=== PATIENT | female | born 1950 | race Caucasian/White ===

== ENCOUNTER 2017-02-04 03:13 | Emergency (ER) | payer BC, MEDICARE, OTHER ==
[~2017-02-04] VITALS: Ht 157.5 cm; Wt 68.0 kg
[2017-02-04 03:19] VITALS: BP_SYST 150
--- NOTE | 2017-02-04 03:19 | NUR ---
Patient to ER bed 6 to gown for evaluation. Side rails up. Report given to MER Vela.
--- NOTE | 2017-02-04 03:25 | NUR ---
Patient AOx4, brought in by ambulance BLS for complaint of generalized weakness, nausea, vomiting x2 days. No other symptoms or complaints at this time.
[2017-02-04] MEDS ORDERED: KETOROLAC TROMETHAMINE 30 MG VIAL IVP ONE (03:45)
[2017-02-04] MEDS ORDERED: NACL 0.9% 1,000 ML IV ONE (03:45)
[2017-02-04] MEDS ORDERED: ONDANSETRON HCL 4 MG/2 ML VIAL IVP ONE ×2 (03:45→06:30)
--- NOTE | 2017-02-04 03:45 | NUR ---
KING VALDEZ Kwaw at bedside for medical evaluation.
--- NOTE | 2017-02-04 03:47 | NUR ---
# 22 gauge angiocath placed to LAC. Use of asceptic technique. Opsite placed over site. Blood return noted. Blood for lab drawn from site. Flushed with 10 cc of normal saline. No evidence of infiltration noted. Patient tolerated well.
[2017-02-04 04:09] LABS: EOSINOPHILS % (AUTO) 1.5 % (0.0-4.0); HEMATOCRIT 45.1 % (36-48); HEMOGLOBIN 15.3 g/dL (12.0-16.0); LYMPHOCYTES # (AUTO) 1.7 K/uL (1.0-5.5); LYMPHOCYTES % (AUTO) 10.1 % (20.5-51.5); MEAN CORPUSCULAR HEMOGLOBIN 31 pg (27-31); MEAN CORPUSCULAR HGB CONC 34 % (32-36); MEAN CORPUSCULAR VOLUME 92 fL (79.0-98.0); MONOCYTES # (AUTO) 0.6 K/uL (0.0-1.0); MONOCYTES % (AUTO) 3.7 % (1.7-9.3); NEUTROPHILS # (AUTO) 13.8 K/uL (1.8-7.7); NEUTROPHILS % (AUTO) 81.7 % (40.0-70.0); PLATELET COUNT (AUTO) 246 K/uL (130-430); RED BLOOD CELL COUNT(AUTO) 4.88 MIL/uL (4.2-6.2); RED CELL DISTRIBUTION WIDTH 13.5 % (9.0-15.0); WHITE BLOOD COUNT (AUTO) 16.9 K/uL (4.8-10.8)
[2017-02-04 04:10] LABS: BASOPHILS # (AUTO) 0.5 K/uL (0.0-0.2); EOSINOPHILS # (AUTO) 0.3 K/uL (0.0-0.4)
[2017-02-04 04:14] LABS: CREATININE 1.12 mg/dL (0.55-1.30); POTASSIUM 3.7 mmol/L (3.5-5.1)
[2017-02-04 04:19] LABS: ALBUMIN 4.3 g/dL (3.4-4.8); TOTAL BILIRUBIN 0.4 mg/dL (0.0-1.0)
--- NOTE | 2017-02-04 04:22 | NUR ---
Patient refused Toradol and Zofran. Dr. Botello made aware.
[2017-02-04 04:34] LABS: BILIRUBIN,URINE NEGATIVE (NEGATIVE); BLOOD, URINE NEGATIVE (NEGATIVE); CLARITY/URINE CLEAR (CLEAR); COLOR,URINE YELLOW (YELLOW); GLUCOSE,URINE NEGATIVE (NEGATIVE); KETONES,URINE NEGATIVE (NEGATIVE); LEUKOCYTE ESTERASE ,URINE 1+ (NEGATIVE); NITRITE, URINE NEGATIVE (NEGATIVE); PROTEIN URINE 1+ (NEGATIVE); UROBILINOGEN,URINE 0.2 (0.2-1.0)
[2017-02-04 04:40] LABS: BACTERIA,URINE MODERATE /HPF (None Seen); MUCUS,URINE 1+ /LPF (None Seen); RBC,URINE 0-3 /HPF (0-3)
--- NOTE | 2017-02-04 05:29 | NUR ---
Patient resting comfortably, no acute distress noted at this time.
[2017-02-04] MEDS ORDERED: cefTRIAXone 1 GM IVPB PREMIX 50 ML IV ONE (06:30)
--- NOTE | 2017-02-04 06:30 | NUR ---
Patient assisted onto bedpan.
--- NOTE | 2017-02-04 07:05 | NUR ---
Pt off of unit to Radiology. NAD
--- NOTE | 2017-02-04 07:15 | NUR ---
Report given to MER Lyon. All care endorsed.
--- NOTE | 2017-02-04 07:18 | NUR ---
Pt back from Radiology. Pt denies abd pain. No n/v at this time. Reports last episode of emesis was at home, prior to coming. Pt reports "Just feeling weak now"
--- NOTE | 2017-02-04 08:10 | NUR ---
Pt placed on bedpan. Pt reports being too weak to walk. void noted.
[2017-02-04 09:20] VITALS: BP_SYST 123
--- NOTE | 2017-02-04 09:20 | NUR ---
Patient given written and verbal discharge instructions and verbalizes understanding. ER MD discussed with patient the results and treatment provided. Patient in stable condition. ID arm band removed. IV catheter removed intact and dressing applied, no active bleeding. Rx of Cipro and Zofran given. Patient educated on pain management and to follow up with PMD. Pain Scale 0/10. Opportunity for questions provided and answered.
== END 2017-02-04 09:20 | disposition home or self-care (01) ==
LOC: SED 03:13
DX: N39.0 Urinary tract infection, site not specified (principal)
CPT/HCPCS: 36415; 74176; 80053; 81000; 85025; 87086; 96361; 96365; 96375; 99285; J0696; J2405; J7030; J1885